=== PATIENT | female | born 1985 | race Caucasian/White ===

== ENCOUNTER 2023-12-10 11:11 | Emergency (ER) | payer OTHER ==
[2023-12-10] MEDS ORDERED: DIPH,PERTUS(ACELL)TETVAC-LF 0.5 ML VIAL IM ONE (12:17)
[2023-12-10] MEDS ORDERED: MUPIROCIN 2% OINT 22 GM TUBE TOPICAL STA (12:17)
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
[2023-12-10 12:52] VITALS: BP 154/88; PULSE 112; RESP 17; TEMP 97.6
== END 2023-12-10 13:24 | disposition home or self-care (01) ==
LOC: EC 11:11
DX: T25.2 Burn of second degree of ankle and foot (principal); Z23 Encounter for immunization; Y92.000 Kitchen of unspecified non-institutional (private) residence as the place of occurrence of the external cause
CPT/HCPCS: 90471; 90715; 99283